=== PATIENT | male | born 1970 ===

== ENCOUNTER 2017-01-12 06:55 | Day surgery (SDC) | payer OTHER ==
[~2017-01-12] VITALS: Ht 182.9 cm; Wt 85.3 kg
[2017-01-12 12:46] VITALS: BP 123/68
== END 2017-01-12 12:02 | disposition home or self-care (01) | DRG 607 ==
LOC: ORM 06:55
PROVIDERS: ATTEND Surgery
PROC: 0HB1XZZ Excision of Face Skin, External Approach (ICD-10-PCS; principal; 2017-01-12)
DX: D18.01 Hemangioma of skin and subcutaneous tissue (principal); L91.0 Hypertrophic scar